=== PATIENT | female | born 1955 | race American Indian/Alaskan Native ===

== ENCOUNTER 2017-03-14 14:08 | Outpatient (CLI) | payer MEDICARE ==
--- NOTE | 2017-03-15 15:24 | Mammography Report ---
BILATERAL DIGITAL SCREENING MAMMOGRAM with CAD: 03/14/17 14:08:00 CLINICAL: Routine screening.History of cervical cancer. COMPARISON:03/15/15 FINDINGS: The breasts are heterogeneously dense, which may obscure small masses.Right lower inner biopsy clip. No mass, architectural distortion or suspicious calcifications. IMPRESSION: No mammographic evidence of malignancy. BI-RADS CATEGORY: 2 - - Benign RECOMMENDATION: Routine mammographic screening in one year. COMMENT: Patient follow-up letters are generated by our [employer] application.
== END 2017-03-14 14:09 | disposition home or self-care (01) ==
LOC: SPVWC 14:08
PROVIDERS: ATTEND Family Medicine
DX: Z12.31 Encounter for screening mammogram for malignant neoplasm of breast (principal); Z85.41 Personal history of malignant neoplasm of cervix uteri
CPT/HCPCS: 77067; G0202

== ENCOUNTER 2021-01-30 14:42 | Outpatient (CLI) | payer MEDICARE ==
--- NOTE | 2021-02-01 08:39 | Mammography Report ---
DIGITAL SCREENING MAMMOGRAM WITH CAD, 01/30/2021 CLINICAL INFORMATION / INDICATION: Routine screening mammography. SCREENING MAMMOGRAM TECHNIQUE: Digital bilateral 2D mammography was obtained in the craniocaudal and mediolateral obliqu e projections. This examination was interpreted with the benefit of Computer-Aided Detection analysis . COMPARISON: 02/19/2012 FINDINGS: Breast Density: There are scattered areas of fibroglandular density. No dominant mass, suspicious calcifications, or architectural distortion in either breast. Biopsy change again seen on the right. Largely unchanged nodular densities in the breasts, commonly f ibroglandular or fibrocystic change. IMPRESSION: No mammographic evidence of malignancy. Follow up recommendation: Routine yearly BI-RADS Category 2: Benign. A "normal" or negative report should not discourage follow up or biopsy of a clinically significant f inding. A written summary of these findings will be mailed to the patient. The patient will be entered into a mammography reporting system which will generate a reminder letter for the patient's next appointmen t at the appropriate interval. The [employer] recommends yearly mammograms starting at age 40 and continuing as l barry as a woman is in good health. Breast MRI is recommended for women with an approximate 20-25% or greater lifetime risk of breast cancer, including women with a strong family history of breast or ova alan cancer or who have been treated for Hodgkin's disease. Signer Name: Aime Ramirez MD Signed: 02/01/2021 8:34 AM Workstation Name: [id number]
== END 2021-01-30 14:43 | disposition home or self-care (01) ==
LOC: SPVWC 14:42
PROVIDERS: ATTEND Family Medicine
DX: Z12.31 Encounter for screening mammogram for malignant neoplasm of breast (principal)
CPT/HCPCS: 77063; 77067